=== PATIENT | male | born 2000 | race African-American/Black ===

== ENCOUNTER 2018-12-10 15:35 | Emergency (ER) | payer OTHER ==
--- NOTE | 2018-12-10 16:49 | CT ---
CT of the facial bones: 12/10/2018 COMPARISON: None HISTORY: Facial swelling, trauma TECHNIQUE: Axial CT imaging at 2.5 mm intervals through the facial bones without contrast. FINDINGS: The frontal sinuses, maxillary sinuses, ethmoid air cells, and sphenoid sinuses appear well aerated. The mastoid air cells are well aerated. There is extensive left-sided perimandibular soft tissue swelling with skin thickening and fat strand ing. There is no associated mandibular fracture. There is no evidence for temporomandibular joint dislocation. The nasal bones demonstrate no displaced fracture. The zygomatic arches and the pterygoid plates appe ar intact. The orbital floor and the medial orbital wall is intact bilaterally. No acute osseous abnormality is noted. IMPRESSION: No acute osseous abnormality. Left-sided perimandibular soft tissue swelling.
== END 2018-12-10 17:20 ==
LOC: ERS 15:35
DX: S00.83XA Contusion of other part of head, initial encounter (principal); Y04.8XXA Assault by other bodily force, initial encounter
CPT/HCPCS: 70486